=== PATIENT | female | born 1935 | race Caucasian/White ===

== ENCOUNTER 2020-12-25 18:59 | Emergency (ER) | payer OTHER ==
[~2020-12-25] VITALS: Ht 152.4 cm; Wt 72.6 kg
[2020-12-25] MEDS ORDERED: AMLODIPINE 2.5 MG (19:21)
[2020-12-25] MEDS ORDERED: SYNTHROID75 MCG (19:22)
[2020-12-25] MEDS ORDERED: TENORMIN100 M1 (19:23)
[2020-12-25] MEDS ORDERED: AMITRIPTYLINE H25 MG (19:24)
[2020-12-25] MEDS ORDERED: HYDROCHLOROTHIAZIDE (19:25)
[2020-12-25] MEDS ORDERED: CO Q-10200 MG (19:26)
[2020-12-25] MEDS ORDERED: EZALLOR SPRINKLE5 MG (19:26)
[2020-12-25] MEDS ORDERED: ALLEGRA ALLERG180 MG (19:27)
[2020-12-25] MEDS ORDERED: B-121000 MC1 (19:27)
[2020-12-25] MEDS ORDERED: TYLENOL 500 MG. (19:29)
[2020-12-25] MEDS ORDERED: VITAMINA C (19:30)
== END 2020-12-25 23:00 | disposition home or self-care (01) ==
LOC: ER 18:59
DX: I11.0 Hypertensive heart disease with heart failure (principal); I50.9 Heart failure, unspecified; R60.0 Localized edema

== ENCOUNTER 2021-12-03 16:34 | Emergency (ER) | payer OTHER ==
[~2021-12-03] VITALS: Ht 152.4 cm; Wt 72.6 kg
[~2021-12-03 16:34] MED LIST: ALLEGRA ALLERG180 MG; AMITRIPTYLINE H25 MG; AMLODIPINE 2.5 MG; B-121000 MC1; CO Q-10200 MG; EZALLOR SPRINKLE5 MG; HYDROCHLOROTHIAZIDE; SYNTHROID75 MCG; TENORMIN100 M1; TYLENOL 500 MG.; VITAMINA C
[2021-12-03] MEDS ORDERED: CIPRO500 MG PO (22:22)
== END 2021-12-03 23:37 | disposition home or self-care (01) ==
LOC: ER 16:34
DX: N39.0 Urinary tract infection, site not specified (principal); Z20.822 Contact with and (suspected) exposure to COVID-19; E78.00 Pure hypercholesterolemia, unspecified; E03.9 Hypothyroidism, unspecified; I10 Essential (primary) hypertension; Z88.0 Allergy status to penicillin; Z88.6 Allergy status to analgesic agent

== ENCOUNTER 2021-12-10 06:08 | Emergency (ER) | payer OTHER ==
[~2021-12-10] VITALS: Ht 147.3 cm; Wt 81.6 kg
[~2021-12-10 06:08] MED LIST changes: +CIPRO500 MG PO
== END 2021-12-10 18:35 | disposition home or self-care (01) ==
LOC: ER 06:08
DX: K52.9 Noninfective gastroenteritis and colitis, unspecified (principal); Z88.0 Allergy status to penicillin; Z88.6 Allergy status to analgesic agent; E78.00 Pure hypercholesterolemia, unspecified; E03.9 Hypothyroidism, unspecified; I10 Essential (primary) hypertension

== ENCOUNTER 2023-01-25 17:40 | Emergency (ER) | payer OTHER ==
[~2023-01-25] VITALS: Ht 152.4 cm; Wt 81.6 kg
== END 2023-01-26 12:35 | disposition home or self-care (01) ==
LOC: ER 17:40
DX: L03.119 Cellulitis of unspecified part of limb (principal)